=== PATIENT | female | born 1955 | race Hispanic/Latino ===

== ENCOUNTER → 2018-04-02 | Outpatient (CLI) | payer MEDICARE, OTHER ==
[~2018-04-02] MED LIST: ALBU8.5H8 IH; CLOT15CR4 TP; DULO20 PO; FAMO20TA8 PO; FOLI0.8T PO; FURO20TA4 PO; GABA-531 PO; GLIP10TA9 PO; HYDR30CR77 RC; INSLAN SQ; LEVO25TA54 PO; LOSA100T58 PO; METF-444 PO; PANT40TA25 PO; PENI500T2 PO
== END | disposition home or self-care (01) ==
LOC: OIH 12:43
PROVIDERS: ATTEND Internal Medicine
DX: I10 Essential (primary) hypertension (principal)
CPT/HCPCS: 71046

== ENCOUNTER → 2018-08-13 | Outpatient (CLI) | payer OTHER | END | disposition home or self-care (01) | LOC: OIH 08:55 | PROVIDERS: ATTEND Internal Medicine | DX: M17.12 Unilateral primary osteoarthritis, left knee (principal) | CPT/HCPCS: 73560 ==

== ENCOUNTER → 2020-02-22 | Outpatient (CLI) | payer OTHER ==
[~2020-02-22] MED LIST changes: -PANT40TA25 PO; +PANT40TA54 PO
== END | disposition home or self-care (01) ==
LOC: OIH 07:39
PROVIDERS: ATTEND Internal Medicine
DX: M53.3 Sacrococcygeal disorders, not elsewhere classified (principal); M41.86 Other forms of scoliosis, lumbar region; M50.322 Other cervical disc degeneration at C5-C6 level
CPT/HCPCS: 72040; 72100; 72202

== ENCOUNTER 2024-02-10 13:59 | Emergency (ER) | payer OTHER ==
[~2024-02-10] VITALS: Ht 167.6 cm; Wt 102.5 kg
[~2024-02-10 13:59] MED LIST changes: -FOLI0.8T PO; +FOLI0.8T3 PO; +GLIP10TA16 PO; -GLIP10TA9 PO; -LOSA100T58 PO; +LOSA100T59 PO
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
--- NOTE | 2024-02-10 15:15 | NUR ---
CCOLLAR REMOVED BY Karen HOPKINS
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
[2024-02-10 15:23] VITALS: BP 143/93; PULSE 90; RESP 16; TEMP 97.9; O2SAT 99
[2024-02-10] MEDS ORDERED: HYDROcodone/acetaMINOPHEN 10/325 MG TAB PO ONE (15:30)
== END 2024-02-10 15:31 | disposition home or self-care (01) ==
LOC: EDH 13:59
DX: S16.1XXA Strain of muscle, fascia and tendon at neck level, initial encounter (principal); E11.9 Type 2 diabetes mellitus without complications; I10 Essential (primary) hypertension; Z79.4 Long term (current) use of insulin; Z79.84 Long term (current) use of oral hypoglycemic drugs; Z79.890 Hormone replacement therapy; Z79.899 Other long term (current) drug therapy; V89.2XXA Person injured in unspecified motor-vehicle accident, traffic, initial encounter; Y93.89 Activity, other specified; Y92.89 Other specified places as the place of occurrence of the external cause; Y99.8 Other external cause status
CPT/HCPCS: 70450; 72125; 72128; 72131; 99284

== ENCOUNTER → 2024-02-25 | Outpatient (CLI) | payer OTHER ==
[2024-02-25 09:58] LABS: CREATININE 2.1 mg/dL (0.5-1.0)
== END | disposition home or self-care (01) ==
LOC: LAB 10:00
PROVIDERS: ATTEND Internal Medicine
DX: N28.1 Cyst of kidney, acquired (principal)
CPT/HCPCS: 36415; 82565; 84520